=== PATIENT | male | born 1970 | race Caucasian/White ===

== ENCOUNTER 2019-01-20 01:10 | Emergency (ER) | payer MEDICAID ==
[~2019-01-20] VITALS: Ht 188 cm; Wt 154.4 kg
--- NOTE | 2019-01-20 01:31 | NUR ---
GIVEN SOCKS AND 1L ICE WATER TO DRINK
[2019-01-20 02:37] LABS: BASOPHILS # (AUTO) 0.04 x10^3/uL (0-0.1); BASOPHILS % (AUTO) 0 % (0-1); EOSINOPHILS # (AUTO) 0.29 x10^3/uL (0-0.4); EOSINOPHILS % (AUTO) 3 % (1-7); LYMPHOCYTES # (AUTO) 1.08 x10^3/uL (1-3.4); LYMPHOCYTES % (AUTO) 11 % (22-44); MD NO; MEAN CORPUSCULAR HEMOGLOBIN 27.9 pg (27.5-34.5); MEAN CORPUSCULAR HGB CONC 33.4 g/dL (33.2-36.2); MEAN CORPUSCULAR VOLUME 83.8 fL (81-97); MEAN PLATELET VOLUME 7.1 fL (7.4-10.4); MONOCYTES # (AUTO) 0.59 x10^3/uL (0.2-0.8); MONOCYTES % (AUTO) 6 % (2-9); NEUTROPHILS # (AUTO) 8.13 x10^3/uL (1.8-6.8); NEUTROPHILS % (AUTO) 80 % (42-75); PLATELET COUNT 278 x10^3/uL (130-400); RED BLOOD COUNT 5.08 x10^6/uL (4.38-5.82); RED CELL DISTRIBUTION WIDTH 15.1 % (9.4-14.8)
[2019-01-20 02:48] LABS: ALANINE AMINOTRANSFERASE 26 U/L (12-78); ALBUMIN 3.4 g/dL (3.4-5.0); ANION GAP 11 mmol/L (5-15); CALCIUM 8.6 mg/dL (8.5-10.1); CHLORIDE 112 mmol/L (98-107); CREATININE 1.29 mg/dL (0.7-1.3)
[2019-01-20 02:52] LABS: ALKALINE PHOSPHATASE 77 U/L (45-117); BILIRUBIN,TOTAL 1.5 mg/dL (0.2-1.0); TOTAL PROTEIN 7.6 g/dL (6.4-8.2); TROPONIN I < 0.015 ng/mL (0.000-0.045)
[2019-01-20 04:38] LABS: AMPHETAMINE SCREEN, URINE Positive (Negative); BARBITURATE SCREEN, URINE Negative (Negative); BENZODIAZEPINE SCREEN, URINE Negative (Negative); CANNABINOID SCREEN, URINE Negative (Negative); COCAINE SCREEN, URINE Negative (Negative); METHADONE SCREEN, URINE Negative (Negative); OPIATE SCREEN, URINE Negative (Negative)
[2019-01-20 05:00] VITALS: BP 147/95
--- NOTE | 2019-01-20 05:00 | NUR ---
Patient/Caregiver given discharge instructions and they have confirmed that they understand the instructions. Patient ambulatory with steady gait.
== END 2019-01-20 05:02 | disposition home or self-care (01) ==
LOC: ED 04:50
DX: M54.5 Low back pain (principal); F15.10 Other stimulant abuse, uncomplicated; E66.9 Obesity, unspecified; Z72.9 Problem related to lifestyle, unspecified; F17.210 Nicotine dependence, cigarettes, uncomplicated; J44.9 Chronic obstructive pulmonary disease, unspecified; I50.9 Heart failure, unspecified; I11.0 Hypertensive heart disease with heart failure; E11.9 Type 2 diabetes mellitus without complications
CPT/HCPCS: 36415; 71045; 72110; 80053; 80307; 84484; 85025; 93005; 99284

== ENCOUNTER 2019-07-07 17:24 | Emergency (ER) | payer MEDICAID ==
[~2019-07-07] VITALS: Ht 188 cm; Wt 150.6 kg
--- NOTE | 2019-07-07 17:58 | NUR ---
PT PRESENTS TO ED WITH LEFT EAR PAIN, DECREASED HEARING. STATES THIS ALL STARTED TODAY. EVIDENT EAR WAX IN CANAL, NO DRAINAGE OR BLEEDING. AWAITING ERMD EVAL.
[2019-07-07] MEDS ORDERED: HYDROcodone/APAP 5/325 TABLET PO ONE (18:41)
[2019-07-07] MEDS ORDERED: HYDROcodone/APAP 5/325 TABLET ONE (18:43)
--- NOTE | 2019-07-07 18:58 | NUR ---
REPORT TO SHEELA ALICEA. EAR IRRIGATION PREPPED AND UNDERGOING CURRENTLY. PT MEDICATED PER EMAR.
--- NOTE | 2019-07-07 19:18 | NUR ---
PT EAR IRRIGATION COMPLETED. PT TOLERATED WELL, STATES "WOW I CAN HEAR, I FEEL SO MUCH BETTER". PT CONNECTED TO MONTIORING, CALL LIGHT WITHIN REACH, ALL SAFETY MEASURES IN PLACE.
[2019-07-07 20:48] VITALS: BP 174/107
--- NOTE | 2019-07-07 20:49 | NUR ---
PT RESTING ON GURNEY WITH EYES CLOSED. PT REPORTS FEELING BETTER. UPDATED PT ON POC. MONTIORING IN PLACE, ALL SAFETY MEASURES IN PLACE.
== END 2019-07-07 21:51 | disposition home or self-care (01) ==
LOC: ED 20:27
DX: H61.23 Impacted cerumen, bilateral (principal); H60.91 Unspecified otitis externa, right ear; E11.9 Type 2 diabetes mellitus without complications; I10 Essential (primary) hypertension; J44.0 Chronic obstructive pulmonary disease with (acute) lower respiratory infection; Z86.718 Personal history of other venous thrombosis and embolism; Z87.891 Personal history of nicotine dependence
CPT/HCPCS: 99283